=== PATIENT | male | born 1980 | race Caucasian/White ===

== ENCOUNTER 2017-10-22 09:03 | Emergency (ER) | payer MEDICAID ==
[2017-10-22 10:45] VITALS: BP 117/77
== END 2017-10-22 10:45 | disposition home or self-care (01) ==
LOC: ED 09:03
DX: M54.12 Radiculopathy, cervical region (principal)

== ENCOUNTER 2019-05-13 19:49 | Emergency (ER) | payer MEDICAID ==
[~2019-05-13] VITALS: Ht 172.7 cm; Wt 74.4 kg
[2019-05-13 19:59] VITALS: Ht 172.7 cm; Wt 74.4 kg
[2019-05-13 21:57] VITALS: BP 115/66
== END 2019-05-13 21:57 | disposition home or self-care (01) ==
LOC: ED 19:49
DX: S16.1XXA Strain of muscle, fascia and tendon at neck level, initial encounter (principal); S39.012A Strain of muscle, fascia and tendon of lower back, initial encounter; S50.02XA Contusion of left elbow, initial encounter; S09.8XXA Other specified injuries of head, initial encounter; W17.89XA Other fall from one level to another, initial encounter; Y93.89 Activity, other specified; Y92.89 Other specified places as the place of occurrence of the external cause; Y99.8 Other external cause status
CPT/HCPCS: J1885